=== PATIENT | female | born 1980 | race Hispanic/Latino ===

== ENCOUNTER 2020-06-15 09:33 | Outpatient (CLI) | payer OTHER | END 2020-06-15 09:34 | disposition home or self-care (01) | LOC: BICULT 09:33 | PROVIDERS: ATTEND Family Medicine | DX: O26.841 Uterine size-date discrepancy, first trimester (principal); O34.11 Maternal care for benign tumor of corpus uteri, first trimester; O99.891 Other specified diseases and conditions complicating pregnancy; N85.2 Hypertrophy of uterus; Z3A.13 13 weeks gestation of pregnancy | CPT/HCPCS: 76856 ==